=== PATIENT | female | born 1970 | race Caucasian/White ===

== ENCOUNTER 2023-05-23 15:08 | Outpatient (AMB) | payer OTHER, SELFPAY ==
--- NOTE | 2023-05-23 15:24 | A.OFFPC_ITS ---
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 Intake Note: Pt is here today as a New Patient to est care/ Never had a colonoscopy, mammogram and its been years for her papsmear Allergies No Known Allergies Allergy (Verified 05/23/23 15:36) Medication List - Last Reconciled 05/23/23 by FIFI Sher No Known Home Meds Tobacco use date assessed: 05/23/23 Dental Screening Dental Screen Date: 05/23/23 Did you have a dental visit in the last 12 months?: Yes Did you have a dental problem in the last 6 months where you did not have access to dental care?: Yes Was dental information given to patient?: Patient has dentist HPI HPI Comments History of Present Illness Details Patient is a 52-year-old female in today to establish care. She has a past medical history significant for hiatal hernia and bilateral foot discomfort. She is due for Pap smear, colonoscopy, mammogram, will refer. She declines immunizations at this time. Patient states that she had a CT scan at her previous place of residence in [place] and was told that she had a hernia,she does not remember what kind, just that it involves the diaphragm. She states this was prior to [facility], and sh e never heard from the office and nothing was ever done about the problem. She states that she lost weight as an intervention to the discomfort, but that the discomfort is interfering with her daily life. With some movement she feels a sharp pain that radiates through her back, other times she has a dull ache. This pain is reproducible, and is positional. She utilizes Tylenol and Salonpas with some effect. She also states that she has bilateral foot discomfort. Denies any trauma to the area, denies any tingling, numbness, change in foot color, or edema. 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 She does not use Motrin often due to past overuse. [facility] Medical History Esophageal stricture Family History Mother Hypertension Father Skin cancer Social History (Updated 05/23/23 @ 15:42 by FIFI Sher) Housing: House Alcohol intake: current Comment: soc situations Patient Tobacco Use Status: Former Tobacco user Tobacco use type: Cigar e-Cigarette/Vaping Use: Never Used service: No Current occupational status: employed Cognitive needs: No Hearing needs: No Vision needs: Yes Questionnaire PHQ-9 Over the last 2 weeks, how often have you been bothered by any of the following problems? 1. Little interest or pleasure in doing things: not at all 2. Feeling down, depressed, or hopeless: not at all 3. Trouble falling or staying asleep, or sleeping too much: not at all 4. Feeling tired or having little energy: not at all 5. Poor appetite or overeating: not at all 6. Feeling bad about yourself - or that you are a failure or have let yourself or your family down: not at all 7. Trouble concentrating on things, such as reading the newspaper or watching television: not at all 8. Moving or speaking so slowly that other people could have noticed. Or the opposite - being so fidgety or restless that you have been moving around a lot more than usual: not at all 9. Thoughts that you would be better off or of hurting yourself in some way: not at all Total score: 0 Depression Screening Interpretation: Negative Depression Screening Done: Yes 14208 - PHQ-9 Billing: Yes Source: Developed by Drs. Caden Russell, Bhargavi Fisher, Reji Starks and colleagues, with an educational ga from [employer]. Thrive Questionnaire Date Thrive assessed: 05/23/23 I am a: Patient What is your living situation today?: I have a steady place to live Within the past 12 months, did the food you bought not last and you didn't have the money to get more?: Never true Within the past 12 months, did you worry whether your food would run out before you got money to buy more?: Never true Do you have trouble paying for medicines?: No Do you have trouble getting transportation to medical appointments?: No Do you have trouble paying your heating and electricity bill?: No Do you have trouble taking care of your child, family member or friend?: No Do you have trouble with day-to-day activities such as bathing, preparing meals, shopping, managing finances, etc.?: No Are you currently unemployed and looking for a job?: No Are you interested in more education?: No THRIVE Score: 0 AUDIT C Alcohol Use Questionnaire (AUDIT-C) 1. How often do you have a drink containing alcohol?: Monthly or less 2. How many drinks containing alcohol do you have on a typical day when you are drinking?: 1 or 2 3. How often do you have six or more drinks on one occasion?: Never Total Score: 1 TRAVIS-7 AMB Questionnaire TRAVIS-7 Date TRAVIS - 7 assessed: 05/23/23 Feeling nervous, anxious, or on edge: 0 = Not at all Not being able to stop or control worryin = Not at all Worrying too much about different things: 0 = Not at all Trouble relaxin = Not at all Being so restless that it is hard to sit still: 0 = Not at all Becoming easily annoyed or irritable: 0 = Not at all Feeling afraid as if something awful might happen: 0 = Not at all Total TRAVIS-7 score (0-4 normal; 5-9 mild; 10-14 moderate; 15-21 severe): 0 Source: Developed by Drs. Caden Russell, Bhargavi Fisher, Reji Starks and colleagues, with an educational ga from [employer]. TRAVIS-7 Assessment Billing TRAVIS-7 Assessment Tool: TRAVIS-7 Assessment 96327 Review of Systems Const Details: Constitutional : No Weight loss, No Fever, No Chills, No Fatigue, No Malaise Cardiovascular : No Chest Pain, No SOB, No Dyspnea on Exertion, No Orthopnea, No Edema, No Palpitations Respiratory : No Cough, No Sputum, No Wheezing Gastrointestinal : No Nausea, No Vomiting, No Diarrhea, No Constipation, No abdominal Pain, No Hematochezia, No Melena Genitourinary : No Dysuria, No Urinary Frequency, No Hematuria, Musculoskeletal : Admits some back discomfort. Admits bilateral foot discomfort. Skin : No Skin Lesions, No rash Neuro : No Weakness, No Numbness, No Dizziness, No Headache Psych : No Anxiety/Panic, No Depression Heme/Lymph: No Bruising, No Bleeding,No Lymphadenopathy Endocrine : No Polyuria, No Polydipsia All other systems reviewed and are negative Physical exam (Primary Care) Vital Signs: Last Vital Signs Pulse 89 05/23/23 15:25 BP 122/80 05/23/23 15:25 Pulse Ox 99 05/23/23 15:25 Oxygen Delivery Method Room Air 05/23/23 15:25 Care Plan Goal for BP management: Patient's vital signs are stable. BMI result Body Mass Index 30.0 Tobacco/Smoking Status: Tobacco use Status Tobacco use date assessed 05/23/23 05/23/23 15:30 Patient Tobacco Use Status Former Tobacco user 05/23/23 15:42 Tobacco use type Cigar 05/23/23 15:42 e-Cigarette/Vaping Use Never Used 05/23/23 15:42 PHQ-9: PHQ-9 Score PHQ-9: Total score 0 05/23/23 16:19 Depression Screening Interpretation: Negative Thrive Assessment: Date of Thrive Assessment Date Thrive assessed 05/23/23 05/23/23 15:30 Const Other: Appearance: Alert.? Oriented X3.? No acute distress.? Neck: Normal inspection.? Neck supple.?No lymphadenopathy. CVS: Normal heart rate and rhythm.? Pulses normal.? Respiratory: No respiratory distress.? Breath sounds normal.? Abdomen: Soft and nontender.? Skin: Skin warm and dry.? Normal skin color.? Normal skin turgor.? Extremities: No lower extremity edema.? No calf ttp. 5/5 strength to bilateral upper and lower extremities Back: No midline tenderness, no C-spine tenderness, full range of motion, no CVA tenderness bilaterally. Pain with rotation and extension on upper part of back. Not spinal. Neuro: Oriented X 3.? No motor deficit.? No sensory deficit. CN 2-12 intact Assessment and Plan Assessment & Plan (1) Chronic pain of both feet: Comment: Patient states she has chronic pain of bilateral feet due to standing on her feet at her job over the past 30 years. She denied x-ray specifically asked for referral to Podiatry. Code(s): M79.671 - Pain in right foot; M79.672 - Pain in left foot; G89.29 - Other chronic pain (2) Hernia: Comment: Patient states she had CT scan of her abdomen 5-6 years ago which demonstrated a hernia involving her diaphragm. She has not intervened on the issue since. Will order CT scan and referred to GI or General surgery. Patient is agreeable to the plan. Code(s): K46.9 - Unspecified abdominal hernia without obstruction or gangrene Plan: Patient has been educated on signs of worsening symptoms and when to report back to the office or when to report to the emergency room. Plan Take your medications as prescribed. If you were prescribed antibiotics today, it is important that you take your medication to their entirety, do not skip any doses, do not finish them early. Follow-up with your primary care provider this week. Return to the emergency department with new or worsening symptoms. Such as fevers, chills, chest pain, shortness of breath, nausea, vomiting, dizziness, headache, vision changes, lethargy In case of emergency call 911 Orders: Orders Complete Blood Count Auto Diff 05/23/23 Z13.0 - Encounter for screening for diseases of the blood and blood-forming organs and certain disorders involving the immune mechanism UA CC w/rflx Micro + Cult 05/23/23 E86.0 - Dehydration Vitamin D 25-OH (D2 and D3) 05/23/23 Z13.21 - Encounter for screening for nutritional disorder Vitamin B6 05/23/23 Z13.21 - Encounter for screening for nutritional disorder Vitamin B12 05/23/23 Z13.21 - Encounter for screening for nutritional disorder TSH reflex Free T4 05/23/23 Z13.29 - Encounter for screening for other suspected endocrine disorder MM tomosynthesis screening BI 05/23/23 Z12.31 - Encounter for screening mammogram for malignant neoplasm of breast CT abdomen wo IV con 05/23/23 K46.9 - Unspecified abdominal hernia without obstruction or gangrene Comprehensive Met. Panel 05/23/23 Z91.89 - Other specified personal risk factors, not elsewhere classified Lipid Panel 05/23/23 Z13.220 - Encounter for screening for lipoid disorders Referrals Podiatry Referral G89.29 - Other chronic pain, M79.671 - Pain in right foot, M79.672 - Pain in left foot SPRING SETTER Referral Z12.4 - Encounter for screening for malignant neoplasm of cervix Gastroenterology Referral K46.9 - Unspecified abdominal hernia without obstruction or gangrene, Z12.11 - Encounter for screening for malignant neoplasm of colon Review Flu Vaccine not done: patient reason Coding Level of Care Code New Pt Level 4 (24745) Diagnoses Chronic pain of both feet M79.671; M79.672; G89.29 Hernia K46.9 Additional Codes TRAVIS-7 Assessment Billing - TRAVIS-7 Assessment Tool: TRAVIS-7 Assessment 04335 ([id number]) Time Spent (min) 50
[2023-05-23 15:25] VITALS: BP 122/80; PULSE 89; O2SAT 99
== END 2023-05-23 16:56 | disposition home or self-care (01) ==
PROVIDERS: PCP Nurse Practitioner Primary Care; Visit Provider Nurse Practitioner Primary Care
DX: M79.671 Pain in right foot (principal); M79.672 Pain in left foot; G89.29 Other chronic pain; K46.9 Unspecified abdominal hernia without obstruction or gangrene
CPT/HCPCS: 99204

== ENCOUNTER 2023-06-29 09:46 | Outpatient (REF) | payer OTHER, SELFPAY ==
--- NOTE | ~2023-06-29 | MM_ITS ---
EXAMINATION: MM SCREENING DIGITAL BREAST TOMOSYNTHESIS, BILATERAL CLINICAL INFORMATION: Screening. Asymptomatic. COMPARISON: Mammography: This study is a new baseline examination. The patient reports her last mammogram was over 10 years ago. TECHNIQUE: Digital breast tomosynthesis is performed in both the craniocaudal and mediolateral oblique views along with computer-aided detection (CAD). Synthesized 2D images are generated from the tomosynthesis. FINDINGS: There are scattered areas of fibroglandular density (ACR BI-RADS breast composition Category b). There are no significant masses, abnormal calcifications, or other abnormalities. MM/MM tomosynthesis screening BI IMPRESSION: No mammographic evidence of malignancy. ASSESSMENT: BI-RADS BI-RADS 1 - Negative RECOMMENDATION: Routine annual mammography screening. 1 year F/U This examination should not preclude the clinical evaluation of a suspicious palpable abnormality. This patient's information was entered into a reminder system with a target due date for their next mammogram.
== END 2023-06-29 09:47 | disposition home or self-care (01) ==
LOC: HO.MAMMO 09:46
PROVIDERS: PCP Nurse Practitioner Primary Care; Visit Provider Nurse Practitioner Primary Care
DX: Z12.31 Encounter for screening mammogram for malignant neoplasm of breast (principal)
CPT/HCPCS: 77063; 77067

== ENCOUNTER → 2023-06-29 10:30 | Outpatient (BNV) | payer OTHER, SELFPAY | PROVIDERS: PCP Nurse Practitioner Primary Care; Visit Provider Radiology Diagnostic Radiology | DX: Z12.31 Encounter for screening mammogram for malignant neoplasm of breast (principal) | CPT/HCPCS: 77063; 77067 ==

== ENCOUNTER 2023-07-05 12:13 | Outpatient (REF) | payer OTHER, SELFPAY ==
--- NOTE | ~2023-07-05 | CT_ITS ---
EXAMINATION: CT ABDOMEN WITHOUT CONTRAST CLINICAL INFORMATION: Unspecified abdominal hernia without obstruction or gangrene. COMPARISON: None available. TECHNIQUE: Contiguous axial thin section helical images of the abdomen were performed without contrast. The data set was reformatted in the coronal and sagittal planes and reviewed on an independent workstation. This CT examination was performed using dose optimization techniques as appropriate, variously including the following: *Automated exposure control *Adjustment of mA and/or kV according to patient size (this includes techniques or standardized protocols for targeted exams where dose is matched to indication/reason for exam; i.e. extremities or head) *Use of iterative reconstruction technique DLP: 345 mGy-cm FINDINGS: LUNG BASES: The visualized lung bases are unremarkable aside from the presence of a 2 mm subpleural right lower lobe nodule (4:27). LIVER, GALLBLADDER, AND BILIARY TREE: The liver is normal in size, shape, and attenuation. No focal hepatic lesion or biliary ductal dilatation is present. The gallbladder is unremarkable with no evidence of radiopaque gallstones, gallbladder wall thickening, or obvious pericholecystic inflammatory changes. PANCREAS: Unremarkable. SPLEEN: Unremarkable. ADRENAL GLANDS: Unremarkable. KIDNEYS AND URETERS: The kidneys are normal in size, shape, and attenuation. No hydronephrosis, hydroureter, or calculi seen. No perinephric stranding. GASTROINTESTINAL TRACT: The visualized bowel including the appendix is unremarkable. ABDOMINAL WALL: There is a tiny periumbilical hernia seen containing only fat with defect measuring 0.8 x 0.7 cm. There is mild diastasis of the rectus muscles in the epigastrium with no evidence of forward bulging. LYMPH NODES: No retroperitoneal lymphadenopathy seen. VASCULAR: Unremarkable. OSSEOUS STRUCTURES: Mild degenerative changes seen with minimal narrowing at L4-L5. There is a hemangioma present in the L5 vertebral body. There is minimal grade 1 anterolisthesis of L4 upon L5. No bony destructive lesions to suggest malignancy. CT/CT abdomen wo IV con IMPRESSION: 1. Tiny periumbilical hernia containing only fat. 2. Incidental note made of a 2 mm right lower lobe lung nodule (no followup indicated), mild degenerative changes in the spine and a hemangioma in the L5 vertebral body. According to the UPDATED 2017 Fleischner Society recommendations, the advised follow-up imaging for solid nodules <6 mm in the middle/lower lobes is no routine followup.
[2023-07-05] MEDS: Barium Sulfate Oral (Vanilla) 450 ML ORAL.SUSP PO (14:06)
== END 2023-07-05 12:14 | disposition home or self-care (01) ==
LOC: HO.CT 12:13
PROVIDERS: PCP Nurse Practitioner Primary Care; Visit Provider Nurse Practitioner Primary Care
DX: K46.9 Unspecified abdominal hernia without obstruction or gangrene (principal)
CPT/HCPCS: 74150

== ENCOUNTER 2023-07-23 13:11 | Outpatient (AMB) | payer OTHER, SELFPAY ==
--- NOTE | 2023-07-23 13:15 | MHC.OFFVIS ---
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 She has had a lot of stress in her life in the last few years. She has not had any major issues with menopause the hot flashes are there but no big deal. She does have a problem with swallowing and can not eat larger amounts and can not tolerate eat protein like meat either even though she loves meat She is in the midst of a workup and has some different test on that body part and system next week she had a mammogram recently. She has varicose veins that she is going to be seeing 2. She is delivered 2 children vaginally 1 of whom was 11 lb. She has no particular sap basis architect concerns she says in the past she always has abnormal Pap smears but when they repeat them they are fine. 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 She has had a lot of stress in the last few years with loss of her parents and moving. [facility] Medical History Esophageal stricture Family History (Updated 07/23/23 @ 13:25 by JIM Shine) Mother Hypertension Father Skin cancer Colon cancer Social History Housing: House Alcohol intake: current Comment: soc situations Patient Tobacco Use Status: Former Tobacco user Tobacco use type: Cigar e-Cigarette/Vaping Use: Never Used Patient : No service: No Current occupational status: employed Cognitive needs: No Hearing needs: No Vision needs: Yes Female Reproductive History Menstrual Age of Menarche: 11 control method: none Total pregnancies: 3 Full term: 2 Number of Living Children: 2 Ab spontaneous: 1 Date of last pap smear: 04/25/17 (negative) History of abnormal pap smear: Yes Date of Mammogram: 06/29/23 Physical Exam Vital Signs: Last Vital Signs BP 122/76 07/23/23 13:18 BMI result Body Mass Index 29.8 Const General: healthy appearing, comfortable, no acute distress, well developed and alert Nutritional Appearance: average body habitus Orientation/consciousness: patient oriented x3 Limitations: no limitations HEENT Head: Yes normocephalic Neck Neck: Yes normal visual inspection Chest Chest palpation & inspection: normal inspection of the chest Breast/axilla inspection: normal inspection of the breasts and normal inspection of the axillae Breast/axilla palpation: normal palpation of the breasts and normal palpation of the axillae Resp Effort & Inspection: normal respiratory effort GI Inspection: Yes normal to inspection, No Abdominal wall edema and No distended Palpation (GI): Soft to palpation and nontender Other: External exam within normal limits vagina pink and moist cervix multiparous pink smooth closed mobile nontender uterus small anteverted mobile nontender adnexa nontender very good muscle tone. General: Yes bladder normal to palpation External Female Exam: normal external appearance and normal appearance of the urethra Speculum Exam - Vagina: normal appearance of the vagina, normal palpation and normal vaginal discharge Speculum Exam - Cervix: normal appearance of the cervix, normal palpation and nontender Bimanual exam- vagina & uterus: normal bimanual exam, normal palpation, uterine size normal, bladder normal to palpation, consistency normal, normal palpation, uterine mobility normal, uterine shape normal, No Cervical tenderness present, non-tender and no cervical motion tenderness Bimanual Exam- Adnexa, other: normal adnexae, no masses, normal and No adnexal tenderness Neuro General: patient oriented x3 Assessment & Plan Assessment & Plan (1) Well woman exam with routine gynecological exam: Code(s): Z01.419 - Encounter for gynecological examination (general) (routine) without abnormal findings (2) Cervical cancer screening: Code(s): Z12.4 - Encounter for screening for malignant neoplasm of cervix (3) Perimenopause: Code(s): N95.1 - Menopausal and female climacteric states Plan -----Discussed in this visit the following: healthy balanced diet, regular and consistent exercise, getting recommended health screens, doing the best she can for her particular health concerns, kegel exercises, pap smear screening and followup recommendations, mammography screening and SBE, normal changes in cycles in her life stage--- . Discussed her her history menopausal symptoms that she is dealing with okay. And she is back on track trying to explore other health concerns such as a diaphragmatic hernia issue that is affecting what she is able to eat and varicose veins and back issues she is slowly dealing with each body part as it comes up. She had her mammogram done last week and she met her primary care provider who is helping her with all these referrals. She does have a history of abnormal Paps but says they always turning lathe tender to be okay and no procedure was ever needed to be done. We will see her in 1 year she declined any other testing had no need of STI testing. Orders: Orders Pap Smear Today Z12.4 - Encounter for screening for malignant neoplasm of cervix Coding Level of Care Code New Pt Prev Care 40-64y(87645) Diagnoses Well woman exam with routine gynecological exam Z01.419 Cervical cancer screening Z12.4 Perimenopause N95.1
[2023-07-23 13:18] VITALS: BP 122/76; BMI 29.8
== END 2023-07-23 14:06 | disposition home or self-care (01) ==
PROVIDERS: PCP Nurse Practitioner Primary Care; Visit Provider Advanced Practice Midwife
DX: Z01.419 Encounter for gynecological examination (general) (routine) without abnormal findings (principal); Z12.4 Encounter for screening for malignant neoplasm of cervix; N95.1 Menopausal and female climacteric states
CPT/HCPCS: 99386

== ENCOUNTER 2023-07-23 13:11 | Outpatient (REF) | payer OTHER, SELFPAY ==
[2023-07-31 03:29] LABS: HPV mRNA E6/E7 rflx Not Detected (Not Detected)
== END 2023-07-23 13:12 | disposition home or self-care (01) ==
LOC: HO.LNP 13:11
PROVIDERS: PCP Nurse Practitioner Primary Care; Visit Provider Advanced Practice Midwife
DX: Z01.419 Encounter for gynecological examination (general) (routine) without abnormal findings (principal); Z11.51 Encounter for screening for human papillomavirus (HPV); N95.1 Menopausal and female climacteric states
CPT/HCPCS: 87624; 88142

== ENCOUNTER 2023-07-26 10:30 | Outpatient (AMB) | payer OTHER, SELFPAY ==
--- NOTE | 2023-07-26 10:39 | A.SPINEOV_ITS ---
Intake Intake Visit Reasons: low back pain Intake Note: Ms. 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 She is a very nice 53-year-old female who has had on and off low back pain going on over the last 2-3 years. Is been getting steadily worse. There is no pain radiating down the legs. It is centered about her mid lumbar region. When she stands up and walks she will almost immediately noticed the pain. The amount of time before she gets the intense and severe pain varies. Sometimes it can be within a few minutes and other times it can be as long as in our more. Getting out of the bed in morning is difficult. The doing certain activities daily living is also difficult. If she sits down or lays down she feels like she can realign her spine and get the pain to go away. She comes in today for evaluation with a lumbar CT showing an L5 hemangioma and some mild disc degeneration. She will take Advil if needed, she uses Salonpas patches as well. No physical therapy, cortisone injections, acupuncture chiropractic treatment yet. PMH: She is otherwise healthy, she does have history of hiatal hernia. Social hx: She is not smoke, drink use any recreational drugs Medications: Advil Allergies: None Physical exam: Normal exam with diminished reflexes at the patella Imaging review: Lumbar CT shows a well-formed hemangioma in the L5 vertebral body. There is no misalignment or collapse of the bone related to this. There is some mild disc degeneration at L4-5 and L5-S1. Impression: 53-year-old female chronic low back pain which standing and walking, getting steadily worse over the last 2-3 years. She has tried some gentle conservative treatment in the form of tincture of time, pain medications as outlined above. She has no radicular features. She does have CT scan showing some mild disc degeneration and L5 hemangioma. None of these things look concerning. The hemangioma is an incidental finding. In order to have a better evaluation of this patient I would like standing flexion-extension x-rays as well as a lumbar MRI. Once these things are completed, I will see her back in the office. Thank you for allowing us to care for your patient. The total time spent with this visit with this patient was 45 minutes reviewing history, physical exam, lumbar CT imaging review, and implementation of treatment plan or further diagnostic testing Vidal Arenas MD,PhD [facility] Orders: Orders MR lumbar spine wo con Today M54.9 - Dorsalgia, unspecified XR lumbar spine 4V min Today M54.9 - Dorsalgia, unspecified Coding Level of Care Code New Pt Level 4 (54452) Diagnoses Back pain M54.9
== END 2023-07-26 13:02 | disposition home or self-care (01) ==
PROVIDERS: PCP Nurse Practitioner Primary Care; Referring Provider Nurse Practitioner Primary Care; Visit Provider Physician Assistant
DX: M54.9 Dorsalgia, unspecified (principal)
CPT/HCPCS: 99204

== ENCOUNTER 2023-07-26 10:30 | Outpatient (REF) | payer OTHER, SELFPAY | END 2023-07-26 10:31 | disposition home or self-care (01) | LOC: HO.HOSX 10:30 | PROVIDERS: PCP Nurse Practitioner Primary Care; Visit Provider Physician Assistant | DX: Z13.89 Encounter for screening for other disorder (principal) ==

== ENCOUNTER 2023-07-30 10:25 | Outpatient (AMB) | payer OTHER, SELFPAY ==
--- NOTE | 2023-07-30 10:27 | MHC.OFFVIS ---
Intake Vital Signs 07/30/23 10:30 Height 5 ft 9 in Weight 200 lb 9.93 oz BMI 29.6 BP 147/60 H Blood Pressure Location Lt brachial Position Sitting Pulse 83 Intake Visit Reasons: Colonoscopy screening / abdominal hernia Intake Note: Leslie presents in the office as a new patient. CC: Family hx of colon cancer and here today because of ongoing issues with her abdomen. Ended p in ED in [place]. She was spitting up saliva and was given nitroglycerin and it calmed down her esophagus. Allergies No Known Allergies Allergy (Verified 07/30/23 10:30) HPI Colonoscopy screening / abdominal hernia HPI Details 53 year old? female is here today for pre colonoscopy screening.? Patient was sent to us by her PCP.? This is his/her first colonoscopy screening.? Patient reports difficulty of swallowing. Patient reports that sometimes when she eats certain food she feels like the food gets stuck in the lower part of her esophagus. Patient reports that when this happens she feels like she can bring the food up it feels like it gets stuck in the lower esophagus and saliva is the only thing that comes up. Patient was told that she has a hernia back in 2019. Abdominal CT scan showed tiny umbilical fat containing hernia and diastasis recti in epigastric area. Patient used to live in [facility] and has moved here couple years ago area. Patient just recently established care here at [facility]. Denies any personal or family history of gastrointestinal disease, colon polyps, or cancer.? Denies history of difficulty with sedation or anesthesia in the past.? Negative for history of sleep apnea.? Denies any history of cardiac, renal, pulmonary, or hepatic disease.?? No history of infectious? diseases like hepatitis A, B, C, HIV or tuberculosis.? Patient is not on any anticoagulation therapy. [facility] Medical History Esophageal stricture Family History Mother Hypertension Father Skin cancer Colon cancer Social History Housing: House Alcohol intake: current Comment: soc situations Patient Tobacco Use Status: Former Tobacco user Tobacco use type: Cigar e-Cigarette/Vaping Use: Never Used service: No Current occupational status: employed Cognitive needs: No Hearing needs: No Vision needs: Yes Female Reproductive History Menstrual Age of Menarche: 11 Review of Systems Const Denies weight gain and Denies weight loss ENT Reports no additional complaints, Reports dysphagia and Denies odynophagia Card Reports no additional complaints Resp Reports no additional complaints GI Denies abdominal pain, Denies belching, Denies melena, Denies bloating, Denies change in bowel habits, Reports dysphagia, Denies excessive flatus, Denies dyspepsia, Denies heartburn, Denies diarrhea, Denies loose stools, Denies nausea, Denies odynophagia and Denies vomiting Musc Reports no additional complaints Neuro Reports no additional complaints Psych Reports no additional complaints Endo Reports no additional complaints Physical Exam Vital Signs: Last Vital Signs Pulse 83 07/30/23 10:30 BP 147/60 H 07/30/23 10:30 BMI result Body Mass Index 29.6 Const General: healthy appearing, no acute distress and well developed Nutritional Appearance: well nourished Orientation/consciousness: patient oriented x3 Resp Effort & Inspection: normal respiratory effort, able to speak in complete sentences, no tracheal deviation and symmetric chest movement Auscultation: clear to auscultation bilaterally Cardio Rate: regular rate GI Inspection: Yes normal to inspection and No distended Palpation (GI): Soft to palpation, not firm, nontender and No hepatosplenomegaly present Auscultation: normal bowel sounds General: Yes no CVA tenderness Back/Spine/Pelvis Back: no CVA tenderness Skin General skin exam: elasticity normal, turgor normal and dry skin Neuro General: patient oriented x3 Psych Appearance: grossly normal Mental Status: mental status grossly normal Assessment & Plan Assessment & Plan (1) Dysphagia: Code(s): R13.10 - Dysphagia, unspecified Qualifiers: Dysphagia type: esophageal phase Qualified Code(s): R13.19 - Other dysphagia (2) Screen for colon cancer: Code(s): Z12.11 - Encounter for screening for malignant neoplasm of colon Plan Patient denies any cardiac or respiratory symptoms. Patient reports dysphagia with almost any food that she eats. Patient does not feel like she has a acid reflux. Will send her for upper GI with barium swallow if reflux seen she will be placed on PPI. Patient also will be sent for upper endoscopy to rule out achalasia, esophageal stricture, Quintana, Schatzki ring. Patient denies any issues with anesthesia in the past.? Denies any history of sleep apnea.? No history infectious diseases in the past or present.? Not on any anticoagulation therapy.? No family or personal history of colon cancer or polyps.? Patient denies melena, hematochezia, unintentional weight loss or ribbon like stools.? Discussed at length the pre-procedure,? prep, diet & medications as well as what to expect prior, during and after the procedure.?? Stressed the importance of good bowel prep. ?Recommended the use of Vaseline or Calmoseptine OTC & baby wipes with bowel movements to promote comfort.? ?Patient verbalizes understanding and agrees to plan of care.? She was given the opportunity to ask questions and all questions answered.? We will see her after the procedure.? Orders: Orders FL upper GI w Ba Swallow Today R13.10 - Dysphagia, unspecified Medications: New bisacodyl (Dulcolax (bisacodyl)) take 4 tabs at noon the day before your colonoscopy 20 mg (4 x 5 mg) PO ONCE 1 day 4 tabs 0RF Z12.11 - Encounter for screening for malignant neoplasm of colon polyethylene glycol 3350 (Miralax) As directed by gastroenterology department at [facility] 238 grams PO ONCE 238 grams 0RF Z12.11 - Encounter for screening for malignant neoplasm of colon Coding Level of Care Code New Pt Level 4 (87703) Diagnoses Esophageal dysphagia R13.19 Dysphagia type: esophageal phase Screen for colon cancer Z12.11 Time Spent (min) 45 Comment 30 minutes spent with patient and additional 15 minutes spent reviewing her records
[2023-07-30 10:30] VITALS: BP 147/60; PULSE 83; BMI 29.6
== END 2023-07-30 12:21 | disposition home or self-care (01) ==
PROVIDERS: PCP Nurse Practitioner Primary Care; Referring Provider Nurse Practitioner Primary Care; Visit Provider Nurse Practitioner Family
DX: R13.19 Other dysphagia (principal); Z12.11 Encounter for screening for malignant neoplasm of colon
CPT/HCPCS: 99204

== ENCOUNTER → 2023-07-30 10:25 | Outpatient (BNVA) | payer OTHER, SELFPAY | PROVIDERS: PCP Nurse Practitioner Primary Care; Visit Provider Nurse Practitioner Family ==

== ENCOUNTER 2023-08-19 10:07 | Outpatient (AMB) | payer OTHER, SELFPAY ==
[2023-08-19 10:18] VITALS: BP 120/72; PULSE 100; O2SAT 98; BMI 29.4
--- NOTE | 2023-08-19 10:18 | MHC.PC.OV ---
Vital Signs 08/19/23 10:18 Height 5 ft 9 in Weight 199 lb 2 oz BMI 29.4 BP 120/72 Blood Pressure Location Rt brachial Position Sitting Pulse 100 Pulse Source Pulse Oximeter Pulse Oximetry (%) 98 Oxygen Delivery Method Room Air Intake Visit Reasons: 3 month follow up Intake Note: Pt is here today for 3 month follow up. Allergies No Known Allergies Allergy (Verified 08/19/23 10:31) Medication List - Last Reconciled 08/19/23 by FIFI Sher bisacodyl (Dulcolax (bisacodyl)) 20 mg (4 x 5 mg) PO ONCE 1 day polyethylene glycol 3350 (Miralax) 238 grams PO ONCE Tobacco use date assessed: 08/19/23 Dental Screening Dental Screen Date: 08/19/23 Did you have a dental visit in the last 12 months?: Yes Did you have a dental problem in the last 6 months where you did not have access to dental care?: No Was dental information given to patient?: Patient has dentist HPI HPI Comments History of Present Illness Details Patient is a 53-year-old female in today for follow-up. Patient patient due for labs. She has a past medical history significant for tiny periumbilical hernia containing only fat, dysphagia, disc degeneration at L4/L5 and L5/L S1. Patient is up-to-date with Pap smear completed 2 months of prior with negative finding. Patient is up-to-date with mammogram last performed 07/20. Patient has colonoscopy scheduled for November. Lower back pain-patient currently being [facility]. Patient has MRI and four view x-ray ordered. Patient will need to schedule follow-up when imaging completed. Dysphagia-patient has upcoming appointment for upper GI with barium swallow. Bilateral foot pain-patient has referral to Podiatry. Patient educated to wear inserts and shoes. Patient given meloxicam. Patient has a chief complaint of bilateral leg heaviness and twitching, as well as varicose veins. She states she has worked several jobs over the years where she is standing on her feet. Denies numbness or tingling. [facility] Medical History (Updated 08/19/23 @ 10:59 by FIFI Sher) Esophageal stricture Family History Mother Hypertension Father Skin cancer Colon cancer Social History Housing: House Alcohol intake: current Comment: soc situations Patient Tobacco Use Status: Former Tobacco user Tobacco use type: Cigar e-Cigarette/Vaping Use: Never Used service: No Current occupational status: employed Cognitive needs: No Hearing needs: No Vision needs: Yes Female Reproductive History Menstrual Age of Menarche: 11 Questionnaire Thrive Questionnaire Date Thrive assessed: 05/23/23 AUDIT C Alcohol Use Questionnaire (AUDIT-C) 1. How often do you have a drink containing alcohol?: Monthly or less 2. How many drinks containing alcohol do you have on a typical day when you are drinking?: 1 or 2 3. How often do you have six or more drinks on one occasion?: Never Total Score: 1 Score Reviewed/Action Taken: Yes TRAVIS-7 AMB Questionnaire TRAVIS-7 Date TRAVIS - 7 assessed: 05/23/23 Source: Developed by Drs. Caden Russell, Bhargavi Fisher, Reji Starks and colleagues, with an educational ga from [employer]. Review of Systems Const All systems reviewed & are unremarkable except as noted in HPI and below Card Denies chest pain, Denies dyspnea and Reports other (Occasional palpitations) Resp Denies cough and Denies dyspnea Musc Reports arthralgias (Of bilateral feet.) and Denies tingling Neuro Denies tingling and Denies paresthesias Physical exam (Primary Care) Care Plan Goal for BP management: Patient's vital stable. Tobacco/Smoking Status: Tobacco use Status Tobacco use date assessed 05/23/23 07/23/23 14:05 Patient Tobacco Use Status Former Tobacco user 07/23/23 14:05 Tobacco use type Cigar 07/23/23 14:05 e-Cigarette/Vaping Use Never Used 07/23/23 14:05 Thrive Assessment: Date of Thrive Assessment Date Thrive assessed 05/23/23 07/23/23 14:05 Const Other: Appearance: Alert.? Oriented X3.? No acute distress.? Head: Normocephalic, atraumatic, no step-offs or deformities Neck: Normal inspection.? Neck supple.? CVS: Normal heart rate and rhythm.? Pulses normal.?S1 and S2. No Rubs/gallops/murmurs. Respiratory: No respiratory distress.? Breath sounds normal.? Skin: Skin warm and dry.? Normal skin color.? Normal skin turgor.? Extremities: No lower extremity edema.? Vascular: +varicose veins bilateral lower extremities. Neuro: Oriented X 3.? No motor deficit.? No sensory deficit. CN 2-12 intact Office Procedures EKG [id number], Complete Assessment and Plan Assessment & Plan (1) Chronic pain of both feet: Comment: Patient given referral to Podiatry. Patient does not want x-rays at this time. Patient instructed to wear proper footwear including inserts. Patient given prescription of meloxicam. Code(s): M79.671 - Pain in right foot; M79.672 - Pain in left foot; G89.29 - Other chronic pain (2) Varicose veins of bilateral lower extremities with other complications: Comment: Patient has varicose veins of bilateral lower extremities. Patient reports some heaviness and twitching. Patient has been instructed she can utilize compression socks. Patient referred to vascular surgery. Code(s): I83.893 - Varicose veins of bilateral lower extremities with other complications (3) Palpitation: Comment: Patient reports occasional palpitation she thinks related to stress. In office EKG performed. Normal sinus rhythm Code(s): R00.2 - Palpitations Plan: Take your medications as prescribed. If you were prescribed antibiotics today, it is important that you take your medication to their entirety, do not skip any doses, do not finish them early. Follow-up with your primary care provider this week. Return to the emergency department with new or worsening symptoms. Such as fevers, chills, chest pain, shortness of breath, nausea, vomiting, dizziness, headache, vision changes, lethargy In case of emergency call 911 Plan Follow-up for physical exam in 2-3 months Orders: Orders AMB EKG-In Office Today Z13.6 - Encounter for screening for cardiovascular disorders Referrals Podiatry Referral G89.29 - Other chronic pain, M79.671 - Pain in right foot, M79.672 - Pain in left foot Medications: New meloxicam Do not combine with other NSAIDS 15 mg PO DAILY 14 tabs 0RF Coding Level of Care Code Est Pt Level 4 (50750) Diagnoses Chronic pain of both feet M79.671; M79.672; G89.29 Varicose veins of bilateral lower extremities with other complications I83.893 Palpitation R00.2 CPT Codes EKG - CPT: 48276-[id number], Complete ([id number]) Time Spent (min) 31
== END 2023-08-19 11:24 | disposition home or self-care (01) ==
LOC: HO.HMGC 10:07
PROVIDERS: PCP Nurse Practitioner Primary Care; Visit Provider Nurse Practitioner Primary Care
DX: M79.671 Pain in right foot (principal); M79.672 Pain in left foot; G89.29 Other chronic pain; I83.893 Varicose veins of bilateral lower extremities with other complications; R00.2 Palpitations
CPT/HCPCS: 93000; 99214

== ENCOUNTER 2023-09-09 18:42 | Outpatient (REF) | payer OTHER, SELFPAY | END 2023-09-09 18:43 | disposition home or self-care (01) | LOC: HO.MRI 18:42 | PROVIDERS: PCP Nurse Practitioner Primary Care; Visit Provider Physician Assistant | DX: Z13.89 Encounter for screening for other disorder (principal) ==

== ENCOUNTER 2023-09-12 09:41 | Outpatient (REF) | payer OTHER, SELFPAY ==
--- NOTE | ~2023-09-12 | MR_ITS ---
EXAMINATION: MR LUMBAR SPINE WITHOUT CONTRAST CLINICAL INFORMATION: Low back pain COMPARISON: Lumbar spine x-ray on 09/12/2023 TECHNIQUE: MRI of the lumbar spine was obtained using routine sequences without contrast. FINDINGS: The visualized lumbar vertebrae are intact with normal alignment. Evaluation of the intervertebral discs show: T12/L1: Intervertebral disc height is normal, with normal T2 signal. No focal disc herniation is seen. Bilateral T12/L1 neuroforamina are patent. Bilateral apophyseal joints are intact with normal alignment. L-1/L-2: Intervertebral disc height is normal, with normal T2 signal. No focal disc herniation is seen. Bilateral L1-L2 neuroforamina are patent. Bilateral apophyseal joints are intact with normal alignment. L2/L3: Intervertebral disc height is normal, with normal T2 signal. No focal disc herniation is seen. Bilateral L2-L3 neuroforamina are patent. Bilateral apophyseal joints are intact with normal alignment. L3/L4: Intervertebral disc height is normal, with normal T2 signal. Mild posterior disc protrusion is seen. Bilateral L3-L4 neuroforamina are patent. Bilateral apophyseal joints are intact with normal alignment. L4/L5: Intervertebral disc height is mildly decreased, with mild loss of T2 signal. No focal disc herniation is seen. Bilateral L4-L5 neuroforamina are patent. Bilateral apophyseal joints are intact with normal alignment. L5 midline and left vertebral body T2 hyperintense lesion with multiple signal voids is seen, consistent with cavernous hemangioma L5/S1: Intervertebral disc height is mildly decreased, with normal T2 signal. No focal disc herniation is seen. Bilateral L5-S1 neuroforamina are patent. Bilateral apophyseal joints are intact with normal alignment. Conus medullaris is seen normally at L1 level. S2 level sacral canal Tarlov cyst is seen measuring 0.5 cm in AP diameter, 1.3 cm in vertical height, impinging the sacral nerve roots. MR/MR lumbar spine wo con IMPRESSION: 1. Mild degenerative disc disease at L4-L5 and L5-S1. 2. Mild posterior disc protrusion at L3-L4. 3. No significant spinal canal or neural foraminal stenosis. 4. L5 vertebral body cavernous hemangioma. 5. S2 level Tarlov cyst is seen impinging the sacral nerve roots.
--- NOTE | ~2023-09-12 | XR_ITS ---
EXAMINATION: XR LUMBOSACRAL SPINE CLINICAL INFORMATION: Comment dorsalgia unspecified COMPARISON: None available. TECHNIQUE: 4 standing views of the lumbar spine, inclusive of flexion and extension views, were obtained. FINDINGS: There 5 nonrib-bearing lumbar-type vertebral bodies. The height of vertebral bodies is well-maintained. There is mild disc space narrowing at L4-L5 with grade 1 anterolisthesis of L4 with respect to L5 which increases with flexion and decreases with extension. There is multilevel degenerative facet joint disease, most marked at L4-L5 and L5-S1. The sacroiliac joints are symmetric. XR/XR lumbar spine 4V min IMPRESSION: 1. Degenerative disc disease at L4-L5 with grade 1 anterolisthesis of L4 with respect to L5, as discussed above. 2. Multilevel degenerative facet joint disease, most marked at L4-L5 and L5-S1.
== END 2023-09-12 09:42 | disposition home or self-care (01) ==
LOC: HO.MRI 09:41
PROVIDERS: PCP Nurse Practitioner Primary Care; Visit Provider Physician Assistant
DX: M54.9 Dorsalgia, unspecified (principal)
CPT/HCPCS: 72110; 72148

== ENCOUNTER 2023-09-26 09:43 | Outpatient (REF) | payer OTHER, SELFPAY ==
--- NOTE | ~2023-09-26 | FL_ITS ---
EXAMINATION: XR FLUOROSCOPY UPPER GI WITH AIR CLINICAL INFORMATION: Dysphagia COMPARISON: None TECHNIQUE: Fluoroscopic air contrast upper GI examination was performed utilizing standard techniques with thin and thick barium and effervescent granules. Numerous spot images were obtained. FINDINGS: Lateral cine images of the oropharynx and hypopharynx demonstrate normal swallow mechanism with normal epiglottic inversion and soft palate elevation. No tracheal penetration, glottic or subglottic aspiration identified. No nasopharyngeal reflux present. There is ballooning of the hypopharynx with associated mild cricopharyngeal achalasia present. Hypopharyngeal structures appear normal without evidence of mass or diverticulum. Dual and single contrast images of the esophagus demonstrate normal caliber, contour, and mucosal pattern. No evidence of mass, or ulcerations identified. There is moderate narrowing of the GE junction. The patient swallowed the barium tablet without any difficulty. There was prolonged stasis of the barium tablets just above the GE junction that eventually passed into the stomach. This appeared secondary to a mildly eccentric Schatzki ring, which is much more prominent centrally and dorsally. (RF 1-8, image 9 of 11). Esophageal peristalsis was mildly disordered. A small type I hiatal hernia is present below the Schatzki ring. No significant gastroesophageal reflux was seen during the course of the examination and on reflux views. Dual contrast and single contrast images of the stomach demonstrated a normal contour. The gastric rugal folds have a mildly thickened appearance. There are multiple well-circumscribed filling defects in the body of the stomach that likely represents hyperplastic polyps. No masses or ulcerations are seen. Contrast freely passed into the gastric antrum and duodenal bulb without delay. Single and air-contrast images of the duodenal bulb demonstrate no abnormality. The duodenal sweep has a normal appearance, course, and mucosal fold appearance. The imaged proximal jejunum has a normal fold pattern and caliber. FLUOROSCOPY TIME: 4 minutes 49 seconds Number of Spot Images: 11 Number of Cine: 17 DOSE AREA PRODUCT: 3213 uGy-m2 (microgray-meter squared) FL/FL upper GI w Ba Swallow IMPRESSION: 1. 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 Moderate narrowing of the GE junction that likely represents a moderately narrowing eccentric Schatzki's ring. This resulted in prolonged stasis of the barium tablets above the LES that eventually passed into the stomach 3. Small type I hiatal hernia. There is a small outpouching/diverticulum of the hiatal hernia just below the GE junction. 4. Mildly thickened gastric rugal folds that likely represents mild gastritis. 5. Multiple well-circumscribed filling defects in the body the stomach that likely represent hyperplastic polyps. Recommend correlation with EGD. This procedure was performed by Julio Don PA-C, and supervised by Dr. Peralta
== END 2023-09-26 09:44 | disposition home or self-care (01) ==
LOC: HO.XRAY 09:43
PROVIDERS: PCP Nurse Practitioner Primary Care; Visit Provider Nurse Practitioner Family
DX: R13.10 Dysphagia, unspecified (principal)
CPT/HCPCS: 74240

== ENCOUNTER → 2023-09-26 09:44 | Outpatient (BNV) | payer OTHER, SELFPAY | PROVIDERS: PCP Nurse Practitioner Primary Care; Visit Provider Physician Assistant Surgical | DX: R13.10 Dysphagia, unspecified (principal) | CPT/HCPCS: 74246 ==

== ENCOUNTER 2023-10-28 09:07 | Outpatient (AMB) | payer OTHER, SELFPAY ==
--- NOTE | 2023-10-28 09:07 | A.OFFPC_ITS ---
Vital Signs 10/28/23 09:10 Height 5 ft 9 in Weight 204 lb BMI 30.1 BP 122/78 Blood Pressure Location Lt brachial Position Sitting Pulse 85 Pulse Source Pulse Oximeter Pulse Oximetry (%) 98 Oxygen Delivery Method Room Air Intake Visit Reasons: 3M F/U Intake Note: pt is here for 3 mo f/u. Allergies No Known Allergies Allergy (Verified 10/28/23 09:28) Medication List - Last Reconciled 10/28/23 by FIFI Sher bisacodyl (Dulcolax (bisacodyl)) 20 mg (4 x 5 mg) PO ONCE 1 day famotidine 40 mg PO BEDTIME meloxicam 15 mg PO DAILY omeprazole 20 mg PO DAILY polyethylene glycol 3350 (Miralax) 238 grams PO ONCE Tobacco use date assessed: 10/28/23 Dental Screening Dental Screen Date: 08/19/23 HPI HPI Comments History of Present Illness Details Patient is a 53-year-old female in today for a 3 month follow-up with chronic foot pain. Patient was given referral to Podiatry but has been unable to make an appointment. States that she has been unable to reach them to make an appointment. Will change referral to [facility]. Patient has also being given Education on proper footwear, proper stretching and exercises she can do to help with the discomfort and pain. Patient denies trauma to the area, denies tingling or numbness. Patient also got labs drawn in [place] at [facility]. Will obtain records. [facility] Medical History (Updated 10/28/23 @ 10:09 by FIFI Sher) Esophageal stricture Surgical History No pertinent past surgical history Family History Mother Hypertension Father Skin cancer Colon cancer Social History Housing: House Alcohol intake: current Comment: soc situations Patient Tobacco Use Status: Former Tobacco user Tobacco use type: Cigar e-Cigarette/Vaping Use: Never Used service: No Current occupational status: employed Cognitive needs: No Hearing needs: No Vision needs: Yes Female Reproductive History Menstrual Age of Menarche: 11 Questionnaire Thrive Questionnaire Date Thrive assessed: 05/23/23 AUDIT C Alcohol Use Questionnaire (AUDIT-C) 1. How often do you have a drink containing alcohol?: Monthly or less 2. How many drinks containing alcohol do you have on a typical day when you are drinking?: 1 or 2 3. How often do you have six or more drinks on one occasion?: Never Total Score: 1 TRAVIS-7 AMB Questionnaire TRAVIS-7 Date TRAVIS - 7 assessed: 05/23/23 Source: Developed by Drs. Caden Russell, Bhargavi Fisher, Reji Starks and colleagues, with an educational ga from [employer]. Review of Systems Const All systems reviewed & are unremarkable except as noted in HPI and below Physical exam (Primary Care) Vital Signs: Last Vital Signs Pulse 85 10/28/23 09:10 BP 122/78 10/28/23 09:10 Pulse Ox 98 10/28/23 09:10 Oxygen Delivery Method Room Air 10/28/23 09:10 Care Plan Goal for BP management: Blood pressure is controlled BMI result Body Mass Index 30.1 Tobacco/Smoking Status: Tobacco use Status Tobacco use date assessed 10/28/23 10/28/23 09:14 Patient Tobacco Use Status Former Tobacco user 10/28/23 09:08 Tobacco use type Cigar 10/28/23 09:08 e-Cigarette/Vaping Use Never Used 10/28/23 09:08 Thrive Assessment: Date of Thrive Assessment Date Thrive assessed 05/23/23 10/28/23 09:08 Const Other: Appearance: Alert.? Oriented X3.? No acute distress.? Head: Normocephalic. CVS: Normal heart rate and rhythm.? Pulses normal.? Respiratory: No respiratory distress.? Breath sounds normal.? Skin: Skin warm and dry.? Normal skin color.? Normal skin turgor.? Extremities: No lower extremity edema.?+Vericose veins bilateral thighs. Neuro: Oriented X 3.? No motor deficit.? No sensory deficit. CN 2-12 intact Assessment and Plan Assessment & Plan (1) Chronic pain of both feet: Comment: Patient given referral to Podiatry. Patient does not want x-rays at this time. Patient instructed to wear proper footwear including inserts. Patient given prescription of meloxicam. Code(s): M79.671 - Pain in right foot; M79.672 - Pain in left foot; G89.29 - Other chronic pain (2) Varicose veins of bilateral lower extremities with other complications: Comment: Patient has varicose veins of bilateral lower extremities. Patient reports some heaviness and twitching. Patient has been instructed she can utilize compression socks. Patient referred to vascular surgery. Code(s): I83.893 - Varicose veins of bilateral lower extremities with other complications (3) Chest tightness: Comment: Patient has history of intermittent chest tightness. Has distant PFT workup with previous provider several years ago but cannot remember the results. Has trialed albuterol inhaler in the past with little effect. Will refer to Pulmonary for consult Code(s): R07.89 - Other chest pain Plan Obtain labs Orders: Referrals Pulmonology Referral R07.89 - Other chest pain Podiatry Referral G89.29 - Other chronic pain, M79.671 - Pain in right foot, M79.672 - Pain in left foot Vascular Surgery Referral I83.893 - Varicose veins of bilateral lower extremities with other complications Coding Level of Care Code Est Pt Level 3 (22010) Diagnoses Chronic pain of both feet M79.671; M79.672; G89.29 Varicose veins of bilateral lower extremities with other complications I83.893 Chest tightness R07.89 Time Spent (min) 26
[2023-10-28 09:10] VITALS: BP 122/78; PULSE 85; O2SAT 98; BMI 30.1
== END 2023-10-28 09:40 | disposition home or self-care (01) ==
PROVIDERS: PCP Nurse Practitioner Primary Care; Visit Provider Nurse Practitioner Primary Care
DX: M79.671 Pain in right foot (principal); M79.672 Pain in left foot; G89.29 Other chronic pain; I83.893 Varicose veins of bilateral lower extremities with other complications; R07.89 Other chest pain
CPT/HCPCS: 99213

== ENCOUNTER 2023-12-03 10:09 | Day surgery (SDC) | payer OTHER, SELFPAY ==
[2023-12-03 06:22] VITALS: BMI 30.3
[2023-12-03 10:11] VITALS: BP 153/70; PULSE 89; RESP 19; TEMP 36.4; O2SAT 98
--- NOTE | 2023-12-03 10:24 | P.HPSUR_ITS ---
Pre-Procedural Eval Section A - 24 Hr Update-Section A only Date of Service: 12/03/23 Section B - Complete if H&P > 30 days Chief Complaint: Encounter for screening for malignant neoplasm of Relevant Family History (Specify if Yes): No Relevant Social History: None Present Medications: see Short Stay Collaborative assessment Medical History: Significant History (dysphagia) History of Previous Operations: No relevant previous surgery Allergies: Allergies Allergy/AdvReac Type Severity Reaction Status Date / Time No Known Allergies Allergy Verified 10/28/23 09:28 Review of Systems Sugical H&P ROS: Negative: Constitution, Cardiovascular, Respiratory, Neur ological, Psychiatric, Hem-Onc, Allergic/Immunologic, Gastrointestinal, Genitourinary, Musculoskeletal, Integumentary, Endocrine and Eyes/Ears/Nose/Throat Exam Surgical H&P Exam: Normal: HEENT, Normal: Heart, Normal: Lungs, Normal: Extremities, Normal: Abdomen, Normal: Skin and Normal: Neurological Plan Diagnosis/Plan: Unchanged I have reviewed the history and physical and performed a pertinent physical examination on my patient. No changes have occurred unless specified. EGD for dysphagia also Time Spent With Patient Time: Total time managing care of this patient today ____ minutes.
[2023-12-03] MEDS: Lactated Ringers 1,000 ML 100 ML IVCONT (10:38)
--- NOTE | 2023-12-03 11:41 | HO.OPN-COLON ---
Colonoscopy Operative Note Operative Note Date of Service: 12/03/23 Narrative: Operative Information Procedure Description: EGD, Colonoscopy Indication: dysphagia, screening colo Anesthesia: MAC FLEXIBLE TRANSORAL UPPER GASTROINTESTINAL ENDOSCOPY AND COLONOSCOPY PROCEDURE NOTE UPPER ENDOSCOPY Consent: Indications for the procedure and potential complications of bleeding, perforation, reaction to medications and missed diagnosis were discussed with the patient and informed consent was obtained. Instrument: Olympus GIF H 190 J mid size upper endoscope Monitoring: Vital signs and clinical assessment, continuous EKG monitoring, Pulse oximetry, Carbon Dioxide monitoring and blood pressure monitoring were done throughout the procedure. Procedure: The patient was placed in the left lateral decubitis position and pre-procedure medications were administered and a bite block was placed. The endoscope was inserted into the mouth and advanced under direct vision to the third part of duodenum. A careful inspection was made as the upper endoscope was withdrawn including a retroflexed examination of the proximal stomach; Findings and interventions are described below. Findings: Larynx:normal Esophagus: GE junction at 40 cm, diaphragm hiatus at 42 cm, consistent with 2 cm sliding hiatal hernia, Schatzki ring noted, dilated with 20 mm balloon and small tear noted-UEs also dilated -no tears, bx taken from GEJ, distal and proximal esophagus Stomach: Patchy erythema Biopsies were obtained. Grade 2 flap valve on retroflexed examination of the cardia. x 3 small gastric polyps 3-4 mm removed with cold forceps Duodenum: bulbar duodenitis, bx taken Intervention: Biopsies as noted above, balloon dilation COLONOSCOPY Instrument: Olympus variable stiffness pediatric scope 190L Colonoscopy Monitoring: Vital signs and clinical assessment, continuous EKG monitoring, Pulse oximetry, Carbon Dioxide monitoring and blood pressure monitoring were done throughout the procedure. Colon withdrawal time was 6 minutes. Procedure: The patient was placed in the left lateral decubitis position and pre-procedure medications were administered. After a digital rectal examination of the ano-rectum, the video colonoscope was inserted into the rectum and advanced through the colon to the cecum/TI. The colonoscope was slowly withdrawn in a retrograde panoramic fashion and the colon mucosa was carefully examined including a retroflexed view of the rectum. Findings and interventions are described below. Procedure Difficulty:moderate Findings: tortuous colon Terminal Ileum-normal Cecum:normal Ascending Colon: normal Transverse Colon -normal Descending Colon:normal Sigmoid Colon: severe diverticulosis Rectum: Retroflexion with small internal hemorrhoids, grade I Anorectum - normal Colon preparation: [place] Bowel Preparation Scale Right colon; 2 Transverse colon: 2 Left colon; 2 (0 = Unprepared colon segment with mucosa not seen due to solid stool that cannot be cleared. 1 = Portion of mucosa of the colon segment seen, but other areas of the colon segment not well seen due to staining, residual stool and/or opaque liquid. 2 = Minor amount of residual staining, small fragments of stool and/or opaque liquid, but mucosa of colon segment seen well. 3 = Entire mucosa of colon segment seen well with no residual staining, small fragments of stool or opaque liquid) Impression and Post Procedure Diagnosis: Endoscopy Findings: duodenitis, gastritis schatzki ring gastric polyps hiatal hernia Colonoscopy Findings: diverticulosis internal hemorrhoids Plan: Await Pathology results Repeat Colonoscopy in 10 years or earlier if clinically indicated High fiber diet leaflet avoid straining at stool, epsom salts and sitz bath, anusol supps or cream GERd precautions, cont with PPI as is helping Above findings were reviewed with the patient and relevant handouts were provided if indicated.
--- NOTE | 2023-12-03 11:45 | HO.ANESPROP2 ---
Documented by User: Heather Nicolas NP 12/02/23 08:29 HPI - Anesthesia Eval Consult details Narrative: 53yo F for Upper Endoscopy and Colonoscopy [facility] Active Problems Active Problems: All Active Problems Chest tightness (Acute) Palpitation (Acute) Varicose veins of bilateral lower extremities with other complications (Acute) Back pain (Acute) Perimenopause (Acute) Cervical cancer screening (Acute) Well woman exam with routine gynecological exam (Acute) Hernia (Acute) Chronic pain of both feet (Acute) Past Medical History Medical History (Updated 10/28/23 @ 10:09 by FIFI Sher) Esophageal stricture Family History Family History Mother Hypertension Father Skin cancer Colon cancer Surgical History Surgical History (Updated 12/03/23 @ 10:34 by Carolin Perez RN) Hx of endoscopy Hx of colonoscopy No pertinent past surgical history Social History Social History Housing: House Alcohol intake: current Alcohol intake frequency: does not drink Comment: soc situations Patient Tobacco Use Status: Former Tobacco user Tobacco use type: Cigar e-Cigarette/Vaping Use: Never Used Are you DNR?: No Advance Directives: No Advance Directives Information Provided: Yes service: No Current occupational status: employed Cognitive needs: No Hearing needs: No Vision needs: Yes Meds Allergies Allergy/AdvReac Type Severity Reaction Status Date / Time No Known Allergies Allergy Verified 10/28/23 09:28 Exam Narrative Narrative: EKG 07/2023 NSR @ 78 Assessment and Plan Assessment Anesthesia Assessment: Chart Reviewed Documented by User: Celena Palmer DO 12/03/23 11:47 PMFSH Past Medical History Medical History (Updated 10/28/23 @ 10:09 by FIFI Sher) Esophageal stricture Family History Family History Mother Hypertension Father Skin cancer Colon cancer Family history of problems with anesthesia: No Surgical History Surgical History (Updated 12/03/23 @ 10:34 by Carolin Perez RN) Hx of endoscopy Hx of colonoscopy No pertinent past surgical history History of Problems with Anesthesia: No Social History Social History Housing: House Alcohol intake: current Alcohol intake frequency: does not drink Comment: soc situations Patient Tobacco Use Status: Former Tobacco user Tobacco use type: Cigar e-Cigarette/Vaping Use: Never Used Are you DNR?: No Advance Directives: No Advance Directives Information Provided: Yes service: No Current occupational status: employed Cognitive needs: No Hearing needs: No Vision needs: Yes Meds Allergies Allergy/AdvReac Type Severity Reaction Status Date / Time No Known Allergies Allergy Verified 10/28/23 09:28 Exam Exam Date and Time: December 03, 2023 1120 Height,Weight and Vital Signs: Height 5 ft 9 in Weight 93.123 kg Vital Signs Temperature 97.5 F 12/03/23 10:11 Pulse Rate 89 12/03/23 10:11 Respiratory Rate 19 12/03/23 10:11 Blood Pressure 153/70 H 12/03/23 10:11 Pulse Oximetry 98 12/03/23 10:11 Oxygen Delivery Method Room Air 12/03/23 10:11 Temperature 97.5 F 12/03/23 10:11 Pulse Rate 89 12/03/23 10:11 Respiratory Rate 19 12/03/23 10:11 Blood Pressure 153/70 H 12/03/23 10:11 Pulse Oximetry 98 12/03/23 10:11 Oxygen Delivery Method Room Air 12/03/23 10:11 Airway Mallampati Class: II TM Dist: <=3cm Neck ROM: Full Loose/Missing/Broken Teeth: Yes (multiple broken teeth) Heart: S1S2 Lungs: CTAB Assessment and Plan Assessment Anesthesia Assessment: Anesthesia Plan Discussed and Chart Reviewed Final Anesthetic Review Family History of Problems with Anesthesia: No History of Problems with Anesthesia: No NPO: Yes ASA Class: II Final Preanesthetic Review: No Changes in Pt Med Stat, Meds/Allgs Chart Reviewed, Consent Obtained/Reviewed and Anes Risks/Benef Reviewed Patient Risk: Low Procedure Risk: Low Anesthetic Plan Anesthetic Plan: MAC: and Agree w/ Assess. and Plan Disposition: Standard PACU
[2023-12-03 12:05] VITALS: BP 118/75; PULSE 87; RESP 18; TEMP 36.1; O2SAT 97
[2023-12-03 12:10] VITALS: BP 117/79; PULSE 81; RESP 16; O2SAT 98
[2023-12-03 12:15] VITALS: BP 121/76; PULSE 79; RESP 14; O2SAT 97
[2023-12-03 12:20] VITALS: BP 139/84; PULSE 84; RESP 16; O2SAT 98
[2023-12-03 12:35] VITALS: BP 143/81; PULSE 79; RESP 15; TEMP 36.1; O2SAT 99
== END 2023-12-03 12:55 | disposition home or self-care (01) ==
PROVIDERS: PCP Nurse Practitioner Primary Care; Visit Provider Internal Medicine Gastroenterology
PROC: (CPT 45378; principal; 2023-12-03 12:20)
DX: Z12.11 Encounter for screening for malignant neoplasm of colon (principal); K57.30 Diverticulosis of large intestine without perforation or abscess without bleeding; K64.0 First degree hemorrhoids; R13.19 Other dysphagia; K29.50 Unspecified chronic gastritis without bleeding; K29.80 Duodenitis without bleeding; K31.7 Polyp of stomach and duodenum; K44.9 Diaphragmatic hernia without obstruction or gangrene; K22.2 Esophageal obstruction; Z87.891 Personal history of nicotine dependence
CPT/HCPCS: 45378; 43249; 43239; 88305; 88307; 88313; 88342; C1726; J2704

== ENCOUNTER → 2023-12-03 10:09 | Outpatient (BNV) | payer OTHER, SELFPAY | PROVIDERS: PCP Nurse Practitioner Primary Care; Visit Provider Internal Medicine Gastroenterology | DX: Z12.11 Encounter for screening for malignant neoplasm of colon (principal); K57.30 Diverticulosis of large intestine without perforation or abscess without bleeding; K64.0 First degree hemorrhoids; R13.10 Dysphagia, unspecified; K22.2 Esophageal obstruction; K31.7 Polyp of stomach and duodenum; K29.80 Duodenitis without bleeding | CPT/HCPCS: 43239; 43249; 45378 ==

== ENCOUNTER 2023-12-17 11:14 | Outpatient (AMB) | payer OTHER, SELFPAY ==
--- NOTE | 2023-12-17 11:28 | A.OFFVIS_ITS ---
Vital Signs 12/17/23 11:29 Height 5 ft 9 in Weight 202 lb 13.204 oz BMI 29.9 BP 140/65 H Blood Pressure Location Lt brachial Position Sitting Pulse 84 Intake Visit Reasons: S/P Double; Dr. Levy Intake Note: Leslie presents in the office as a follow up EGD and COLO. CC: Just here for the results - no concerns! Security Researcher Required: No Allergies No Known Allergies Allergy (Verified 12/17/23 11:28) HPI HPI S/P Double; Dr. Levy: Details: LAST VISIT: Dysphagia Screen for colon cancer Plan Patient denies any cardiac or respiratory symptoms. Patient reports dysphagia with almost any food that she eats. Patient does not feel like she has a acid reflux. Will send her for upper GI with barium swallow if reflux seen she will be placed on PPI. Patient also will be sent for upper endoscopy to rule out achalasia, esophageal stricture, Quintana, Schatzki ring. Patient denies any issues with anesthesia in the past.? Denies any history of sleep apnea.? No history infectious diseases in the past or present.? Not on any anticoagulation therapy.? No family or personal history of colon cancer or polyps.? Patient denies melena, hematochezia, unintentional weight loss or ribbon like stools.? Discussed at length the pre-procedure,? prep, diet & medications as well as what to expect prior, during and after the procedure.?? Stressed the importance of good bowel prep. ?Recommended the use of Vaseline or Calmoseptine OTC & baby wipes with bowel movements to promote comfort.? ?Patient verbalizes understanding and agrees to plan of care.? She was given the opportunity to ask questions and all questions answered.? We will see her after the procedure.? Orders Orders [place] upper GI w Ba Swallow Today R13.10 Medications New bisacodyl (Dulcolax (bisacodyl)) take 4 tabs at noon the day before your colonoscopy 20 mg (4 x 5 mg) PO ONCE 1 day 4 tabs 0RF Z12.11 polyethylene glycol 3350 (Miralax) As directed by gastroenterology department at [facility] 238 grams PO ONCE 238 grams 0RF Z12.11 UPPER ENDOSCOPY AND COLONOSCOPY Upper endoscopy Findings: Larynx:normal Esophagus: GE junction at 40 cm, diaphragm hiatus at 42 cm, consistent with 2 cm sliding hiatal hernia, Schatzki ring noted, dilated with 20 mm balloon and small tear noted-UEs also dilated -no tears, bx taken from GEJ, distal and proximal esophagus Stomach: Patchy erythema Biopsies were obtained. Grade 2 flap valve on retroflexed examination of the cardia. x 3 small gastric polyps 3-4 mm removed with cold forceps Duodenum: bulbar duodenitis, bx taken Intervention: Biopsies as noted above, balloon dilation Colonoscopy Findings: tortuous colon Terminal Ileum-normal Cecum:normal Ascending Colon: normal Transverse Colon -normal Descending Colon:normal Sigmoid Colon: severe diverticulosis Rectum: Retroflexion with small internal hemorrhoids, grade I Anorectum - normal Colon preparation: Metz Bowel Preparation Scale Right colon; 2 Transverse colon: 2 Left colon; 2 (0 = Unprepared colon segment with mucosa not seen due to solid stool that cannot be cleared. 1 = Portion of mucosa of the colon segment seen, but other areas of the colon segment not well seen due to staining, residual stool and/or opaque liquid. 2 = Minor amount of residual staining, small fragments of stool and/or opaque liquid, but mucosa of colon segment seen well. 3 = Entire mucosa of colon segment seen well with no residual staining, small fragments of stool or opaque liquid) Impression and Post Procedure Diagnosis: Endoscopy Findings: duodenitis, gastritis schatzki ring gastric polyps hiatal hernia Colonoscopy Findings: diverticulosis internal hemorrhoids Plan: Await Pathology results Repeat Colonoscopy in 10 years or earlier if clinically indicated High fiber diet leaflet avoid straining at stool, epsom salts and sitz bath, anusol supps or cream GERd precautions, cont with PPI as is helping PATHOLOGY RESULTS Diagnosis A. Duodenum, biopsy: Chronic active/non-specific duodenitis with blunted villi; negative for dysplasia. B. Stomach, biopsy: Gastric body mucosa with mild reactive changes and minimal chronic inactive gastritis; negative for H pylori, intestinal metaplasia and dysplasia. C. Gastric polyps: Fundic gland polyps with minimal to mild chronic active inflammation; negative for H pylori, intestinal metaplasia and dysplasia. D. Gastroesophageal junction, biopsy: Squamous mucosa with hyperplasia, rare intraepithelial neutrophils and few intraepithelial eosinophils (up to 2 per high-power field) and columnar mucosa with mild chronic inflammation, consistent with esophagitis; negative for intestinal metaplasia and dysplasia. E. Esophagus, distal, biopsy: Squamous mucosa with no specific change; no columnar mucosa present. F. Esophagus, proximal, biopsy: Squamous mucosa with no specific change; no columnar mucosa present. TODAY'S VISIT Patient is here today for follow-up and to discuss colonoscopy and upper endoscopy results. Gastric polyp found, mild active inflammation without intestinal metaplasia or dysplasia seen in her stomach. No H pylori found. Mild duodenitis found. Schatzki ring, ballooning. Patient reports to be feeling better. Taking omeprazole 20 mg and her symptoms of dysphagia improved. Patient does admit to have occasional postnasal drip and sinus pressure. Denies any nausea or vomiting. Denies any dyspepsia. Colonoscopy normal with no polyps. Patient had diverticulosis throughout the whole colon. Colonoscopy was recommended in 10 years. [facility]LY [facility], [facility] Medical History (Updated 12/17/23 @ 12:08 by Fabiola Goins [facility]) GERD (gastroesophageal reflux disease) Sliding hiatal hernia Schatzki's ring Diverticulosis Esophageal stricture Surgical History Hx of endoscopy Hx of colonoscopy No pertinent past surgical history Family History Mother Hypertension Father Skin cancer Colon cancer Social History Housing: House Alcohol intake: current Alcohol intake frequency: does not drink Comment: soc situations Patient Tobacco Use Status: Former Tobacco user Tobacco use type: Cigar e-Cigarette/Vaping Use: Never Used service: No Current occupational status: employed Cognitive needs: No Hearing needs: No Vision needs: Yes Female Reproductive History Menstrual Age of Menarche: 11 Review of Systems Const Denies weight gain and Denies weight loss ENT Reports no additional complaints, Denies dysphagia and Denies odynophagia Card Reports no additional complaints Resp Reports no additional complaints GI Denies abdominal pain, Denies belching, Denies melena, Denies bloating, Denies change in bowel habits, Denies dysphagia, Denies excessive flatus, Denies dyspepsia, Denies heartburn, Denies diarrhea, Denies loose stools, Denies nausea, Denies odynophagia and Denies vomiting Reports no additional complaints Musc Reports no additional complaints Neuro Reports no additional complaints Psych Reports no additional complaints Endo Reports no additional complaints Physical Exam Vital Signs: Last Vital Signs Pulse 84 12/17/23 11:29 BP 140/65 H 12/17/23 11:29 BMI result Body Mass Index 29.9 Const General: healthy appearing and no acute distress Nutritional Appearance: obese Orientation/consciousness: patient oriented x3 Resp Effort & Inspection: normal respiratory effort, able to speak in complete sentences, no tracheal deviation and symmetric chest movement Auscultation: clear to auscultation bilaterally Cardio Rate: regular rate GI Inspection: Yes normal to inspection, No distended and Yes obesity Palpation (GI): Soft to palpation, not firm, nontender and No hepatosplenomegaly present Auscultation: normal bowel sounds General: Yes no CVA tenderness Back/Spine/Pelvis Back: no CVA tenderness Skin General skin exam: elasticity normal, turgor normal and dry skin Neuro General: patient oriented x3 Psych Appearance: grossly normal Mental Status: mental status grossly normal Results Reviewed Results Reviewed: UPPER GI SERIES IMPRESSION: 1. 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 Moderate narrowing of the GE junction that likely represents a moderately narrowing eccentric Schatzki's ring. This resulted in prolonged stasis of the barium tablets above the LES that eventually passed into the stomach 3. Small type I hiatal hernia. There is a small outpouching/diverticulum of the hiatal hernia just below the GE junction. 4. Mildly thickened gastric rugal folds that likely represents mild gastritis. 5. Multiple well-circumscribed filling defects in the body the stomach that likely represent hyperplastic polyps. Recommend correlation with EGD. Assessment & Plan Assessment & Plan (1) Diverticulosis: Code(s): K57.90 - Diverticulosis of intestine, part unspecified, without perforation or abscess without bleeding Category: Medical (2) Schatzki's ring: Code(s): K22.2 - Esophageal obstruction Category: Medical (3) Sliding hiatal hernia: Code(s): K44.9 - Diaphragmatic hernia without obstruction or gangrene Category: Medical (4) GERD (gastroesophageal reflux disease): Code(s): K21.9 - Gastro-esophageal reflux disease without esophagitis Category: Medical Qualifiers: Esophagitis presence: without esophagitis Qualified Code(s): K21.9 - Gastro-esophageal reflux disease without esophagitis (5) Status post colonoscopy: Code(s): Z98.890 - Other specified postprocedural states (6) Dysphagia: Code(s): R13.10 - Dysphagia, unspecified Qualifiers: Dysphagia type: esophageal phase Qualified Code(s): R13.19 - Other dysphagia Plan Patient will continue taking omeprazole daily. Avoid dietary triggers and late night snacking. May take famotidine at bedtime. Staying upright for minimum 3 hours after meals discussed with patient. Schatzki ring with balloon. Patient is not experiencing dysphagia anymore. Reports are severe reflux under control. Recommendation made for patient to increase fiber intake. May take probiotics. Patient reports postnasal drip, frequent sinus pressure. Will send patient for allergen testing. Patient will follow-up with us on as-needed basis. May continue current PPI and H2 chela regimen. Colonoscopy in 10 years, sooner on as needed basis. Patient is agreeable to current plan of care and verbalizes understanding of instructions. She was given the opportunity to ask questions and all questions answered. Thank you for allowing me to participate in her care Orders: Orders Rast Allergen Today K21.9 - Gastro-esophageal reflux disease without esophagitis Medications: New omeprazole 40 mg PO DAILY 90 caps 3RF K21.9 - Gastro-esophageal reflux disease without esophagitis Discontinued omeprazole Discontinued Reason: Doctor's Order 20 mg PO DAILY 30 caps 3RF K21.9 - Gastro-esophageal reflux disease without esophagitis Coding Level of Care Code Est Pt Level 4 (89817) Diagnoses Diverticulosis K57.90 Schatzki's ring K22.2 Sliding hiatal hernia K44.9 Gastroesophageal reflux disease without esophagitis K21.9 Esophagitis presence: without esophagitis Status post colonoscopy Z98.890 Esophageal dysphagia R13.19 Dysphagia type: esophageal phase Time Spent (min) 35 Comment 20 minutes spent with patient and additional 15 minutes spent reviewing her records
[2023-12-17 11:29] VITALS: BP 140/65; PULSE 84; BMI 29.9
== END 2023-12-17 11:55 | disposition home or self-care (01) ==
PROVIDERS: PCP Nurse Practitioner Primary Care; Referring Provider Nurse Practitioner Primary Care; Visit Provider Nurse Practitioner Family
DX: K57.90 Diverticulosis of intestine, part unspecified, without perforation or abscess without bleeding (principal); K22.2 Esophageal obstruction; K44.9 Diaphragmatic hernia without obstruction or gangrene; K21.9 Gastro-esophageal reflux disease without esophagitis; Z98.890 Other specified postprocedural states; R13.19 Other dysphagia
CPT/HCPCS: 99214

== ENCOUNTER → 2023-12-17 11:14 | Outpatient (BNVA) | payer OTHER, SELFPAY | PROVIDERS: PCP Nurse Practitioner Primary Care; Visit Provider Nurse Practitioner Family ==

== ENCOUNTER 2024-05-07 11:27 | Outpatient (AMB) | payer OTHER, SELFPAY ==
--- NOTE | 2024-05-07 11:29 | MHC.OFFVIS ---
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 States she has numerous family members w/ VV. Pt states they are bulging, heavy and painful. 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 Complaints include swelling of lower extremities, cramping, fatigue, and heaviness of the lower extremities. It has been affecting their daily activities including walking, standing, and physical activity. It is noted more so in right leg. She is not a smoker and not a diabetic. There is a family history of varicose veins but no history of any blood clots or blood clotting disorders. Patient denies any previous venous surgery or injections. Patient denies any history of DVT/ PE. Patient denies any history of phlebitis. Trial of compression includes - elevation nightly and compression stockings over the last couple of weeks They now present for vascular evaluation regarding their varicose veins. [facility] Medical History GERD (gastroesophageal reflux disease) Sliding hiatal hernia Schatzki's ring Diverticulosis Esophageal stricture Surgical History Hx of endoscopy Hx of colonoscopy No pertinent past surgical history Family History Mother Hypertension Father Skin cancer Colon cancer Social History Housing: House Alcohol intake: current Alcohol intake frequency: does not drink Comment: soc situations Patient Tobacco Use Status: Former Tobacco user Tobacco use type: Cigar e-Cigarette/Vaping Use: Never Used service: No Current occupational status: employed Cognitive needs: No Hearing needs: No Vision needs: Yes Female Reproductive History Menstrual Age of Menarche: 11 Review of Systems Const Reports as per HPI and Denies weakness ENT Reports Normal hearing present and Denies dizziness Card Reports as per HPI, Denies chest pain, Denies chest pain at rest, Denies chest pain with activity, Denies dyspnea and Denies dyspnea on exertion Resp Reports as per HPI, Denies cough, Denies dyspnea and Denies dyspnea on exertion GI Reports as per HPI, Denies abdominal pain, Denies nausea and Denies vomiting Musc Denies numbness Skin/Breast Reports as per HPI, Denies erythema and Denies wounds Neuro Reports Normal hearing present, Denies dizziness, Denies numbness, Denies Sensory deficit (Neuro) and Denies weakness Psych Reports no additional complaints Endo Reports no additional complaints Physical Exam Const General: healthy appearing and no acute distress Orientation/consciousness: patient oriented x3 HEENT Head: Yes normal to inspection Ears: hearing grossly normal bilaterally Mouth: Normal oral and palatal mucosa present Resp Effort & Inspection: normal respiratory effort and able to speak in complete sentences Auscultation: clear to auscultation bilaterally Cardio Jugular venous distension: no JVD Rate: regular rate Rhythm: regular rhythm Heart sounds: S1 normal heart sound present and S2 normal heart sound present Bruits: no abdominal aortic bruits, no carotid bruits, no femoral bruits and no renal bruits Peripheral pulses: Peripheral pulses 2+ throughout GI Inspection: Yes normal to inspection Palpation (GI): No Abdominal aortic bruit present Skin General skin exam: no rashes or lesions noted Wounds: no wounds Hair: normal Neuro General: patient oriented x3 Cranial nerves: Yes Normal hearing present Cognition (Neuro): normal cognition Gait exam (Neuro): Normal gait present Motor exam (neuro): 5/5 motor strength present throughout Sensory Exam: No Sensory deficit (Neuro) Extrem Other: Right lower extremity: several tortuosities noted on the medial aspect around [id number]. Spider veins noted on the upper lateral thigh. Left lower extremity: Spider veins noted multiple locations throughout the lower extremity. Bilateral lower extremities: Trace peripheral edema noted CEAP: C - 3 E - primary A - superficial P - reflux General: Yes normal to inspection, Yes full ROM, Yes capillary refill normal and Yes normal gait Assessment & Plan Assessment & Plan (1) Varicose veins of both lower extremities with inflammation: Code(s): I83.11 - Varicose veins of right lower extremity with inflammation; I83.12 - Varicose veins of left lower extremity with inflammation Category: Medical Plan: Leslie is presenting today on referral from her PCP for ongoing varicose veins, worsening over the last 4-5 years. In short, the patient has evidence of venous insufficiency. I have discussed the pathophysiology with the patient. In addition I have provided informational material regarding venous disease to the patient. We have discussed conservative measures including compression, elevation, and exercise. We are able to provide her with some compression stockings. I have taken the liberty of ordering venous insufficiency testing with the patient. They will follow up with me after testing. The patient had an opportunity to ask questions regarding the treatment plan. All questions were answered. Imaging studies, laboratory studies and physical exam results were discussed and reviewed in detail. No major barriers to understanding were identified. The patient expressed understanding and agreement with the above treatment plan. The patient is aware they should contact our office by phone for worsening of the current condition or the appearance of new symptoms. Thank you for allowing me to participate in the vascular care of this patient. If you have any questions or concerns regarding the treatment for the above condition please do not hesitate to contact me. The office telephone contact is [phone]. This note is constructed using voice recognition software. While every effort has been made to ensure accuracy, ui software engineer errors may have been included. Thank you for allowing me to participate in the care of your patient. Yours sincerely, CAMELIA Robles Orders: Orders US venous duplex LE BI 1 Week I83.11 - Varicose veins of right lower extremity with inflammation, I83.12 - Varicose veins of left lower extremity with inflammation Coding Level of Care Code New Pt Level 4 (79640) Diagnoses Varicose veins of both lower extremities with inflammation I83.11; I83.12
== END 2024-05-07 11:49 | disposition home or self-care (01) ==
PROVIDERS: PCP Nurse Practitioner Primary Care; Visit Provider Physician Assistant Surgical
DX: I83.11 Varicose veins of right lower extremity with inflammation (principal); I83.12 Varicose veins of left lower extremity with inflammation
CPT/HCPCS: 99204

== ENCOUNTER → 2024-05-07 11:27 | Outpatient (BNVA) | payer OTHER, SELFPAY | PROVIDERS: PCP Nurse Practitioner Primary Care; Visit Provider Physician Assistant Surgical ==

== ENCOUNTER → 2024-06-03 12:53 | Outpatient (BNV) | payer BC, SELFPAY | PROVIDERS: PCP Internal Medicine; Visit Provider Radiology Diagnostic Radiology | DX: I87.2 Venous insufficiency (chronic) (peripheral) (principal) | CPT/HCPCS: 93970 ==

== ENCOUNTER 2024-06-16 15:27 | Outpatient (AMB) | payer BC, SELFPAY ==
--- NOTE | 2024-06-16 15:28 | A.OFFVIS_ITS ---
Intake Visit Reasons: follow up [facility] 06/03/2024 Intake Note: Patient presents for [facility] 06/03/24. Accompanied by: Self / Same As Patient Allergies No Known Allergies Allergy (Verified 06/16/24 15:29) HPI HPI follow up [facility] 06/03/2024: Details: Leslie is presenting today as a follow up to venous insufficiency ultrasound, performed on 06/03/2024. She continues to endorse lower extremity pain and swelling, worse on the right. She has been using compression stockings, elevating her legs, as well as maintaining physical activity. He has no new concerns [facility] Medical History GERD (gastroesophageal reflux disease) Sliding hiatal hernia Schatzki's ring Diverticulosis Esophageal stricture Surgical History Hx of endoscopy Hx of colonoscopy No pertinent past surgical history Family History Mother Hypertension Father Skin cancer Colon cancer Social History Housing: House Alcohol intake: current Alcohol intake frequency: does not drink Comment: soc situations Patient Tobacco Use Status: Former Tobacco user Tobacco use type: Cigar e-Cigarette/Vaping Use: Never Used service: No Current occupational status: employed Cognitive needs: No Hearing needs: No Vision needs: Yes Female Reproductive History Menstrual Age of Menarche: 11 Review of Systems Const Reports as per HPI and Denies weakness ENT Reports Normal hearing present and Denies dizziness Card Reports as per HPI, Denies chest pain, Denies chest pain at rest, Denies chest pain with activity, Denies dyspnea and Denies dyspnea on exertion Resp Reports as per HPI, Denies cough, Denies dyspnea and Denies dyspnea on exertion GI Reports as per HPI, Denies abdominal pain, Denies nausea and Denies vomiting Musc Denies numbness Skin/Breast Reports as per HPI, Denies erythema and Denies wounds Neuro Reports Normal hearing present, Denies dizziness, Denies numbness, Denies Sensory deficit (Neuro) and Denies weakness Psych Reports no additional complaints Endo Reports no additional complaints Physical Exam Const General: healthy appearing and no acute distress Orientation/consciousness: patient oriented x3 HEENT Head: Yes normal to inspection Ears: hearing grossly normal bilaterally Mouth: Normal oral and palatal mucosa present Resp Effort & Inspection: normal respiratory effort and able to speak in complete sentences Auscultation: clear to auscultation bilaterally Cardio Jugular venous distension: no JVD Rate: regular rate Rhythm: regular rhythm Heart sounds: S1 normal heart sound present and S2 normal heart sound present Bruits: no abdominal aortic bruits, no carotid bruits, no femoral bruits and no renal bruits Peripheral pulses: Peripheral pulses 2+ throughout GI Inspection: Yes normal to inspection Palpation (GI): No Abdominal aortic bruit present Skin General skin exam: no rashes or lesions noted Wounds: no wounds Hair: normal Neuro General: patient oriented x3 Cranial nerves: Yes Normal hearing present Cognition (Neuro): normal cognition Gait exam (Neuro): Normal gait present Motor exam (neuro): 5/5 motor strength present throughout Sensory Exam: No Sensory deficit (Neuro) Extrem Other: Right lower extremity: several tortuosities noted on the medial aspect around [id number]. Rope-like varicosity, approximately 4-5 cm, noted from the distal thigh to the tibial tuberosity area. Spider veins noted on the upper lateral thigh. Left lower extremity: Spider veins noted multiple locations throughout the lower extremity. Bilateral lower extremities: Trace peripheral edema noted General: Yes normal to inspection, Yes full ROM, Yes capillary refill normal and Yes normal gait Results Reviewed Results Reviewed: Brief summary of venous insufficiency testing is as follows: right great saphenous vein: negative right small saphenous vein: negative right accessory vein: none present left great saphenous vein: negative left small saphenous vein: negative left accessory vein: none present Please note there is no evidence of any venous aneurysms or significant tortuosity Right lower extremity varicose veins noted from the distal thigh down the calf to the anterior tibia. Assessment & Plan Assessment & Plan (1) Varicose veins of both lower extremities with inflammation: Code(s): I83.11 - Varicose veins of right lower extremity with inflammation; I83.12 - Varicose veins of left lower extremity with inflammation Category: Medical Plan: Leslie is presenting today as a follow up to venous insufficiency ultrasound, performed on 06/03/2024. There was some small reflux noted in the left lower extremity; however, she has complaints mostly in the right lower extremity. There was several varicose veins noted from the distal thigh down to the anterior tibia on the right lower extremity, where the patient is having most of her pain and discomfort. This patient has varicose veins with inflammation. They continue to be a source of discomfort for the patient. The patient has tried conservative treatment with compression, leg elevation and exercise program for over 3 months time. They have been compliant with all treatment. This has provided minimal relief for the patient. I do not anticipate this course of treatment will alter the underlying etiology. The patient has been scheduled for lower extremity venous treatment inclusive of right lower extremity microphlebectomy. Risks, benefits, and complications of this procedure has been discussed in detail with the patient including but not limited to bleeding, infection, and the development of a DVT. The patient has demonstrated a clear understanding and has consented. We will schedule the patient as soon as possible. Thank you for allowing us to participate in this patient's care. If there are any questions or concerns please do not hesitate to contact us. This note is constructed using voice recognition software. While every effort has been made to ensure accuracy, call center associate errors may have been included. Thank you for allowing me to participate in the care of your patient. Yours sincerely, CAMELIA Robles Coding Level of Care Code Est Pt Level 4 (31820) Diagnoses Varicose veins of both lower extremities with inflammation I83.11; I83.12 Comment Review of venous insufficiency ultrasound
== END 2024-06-17 09:12 | disposition home or self-care (01) ==
PROVIDERS: PCP Internal Medicine; Visit Provider Physician Assistant Surgical
DX: I83.11 Varicose veins of right lower extremity with inflammation (principal); I83.12 Varicose veins of left lower extremity with inflammation
CPT/HCPCS: 99214

== ENCOUNTER 2024-07-31 12:18 | Outpatient (AMB) | payer BC, SELFPAY ==
--- NOTE | 2024-08-03 12:23 | A.OFFVIS_ITS ---
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 Accompanied by: Self / Same As Patient Allergies No Known Allergies Allergy (Verified 08/03/24 12:24) PFSH Medical History GERD (gastroesophageal reflux disease) Sliding hiatal hernia Schatzki's ring Diverticulosis Esophageal stricture Surgical History Hx of endoscopy Hx of colonoscopy No pertinent past surgical history Family History Mother Hypertension Father Skin cancer Colon cancer Social History Housing: House Alcohol intake: current Alcohol intake frequency: does not drink Comment: soc situations Patient Tobacco Use Status: Former Tobacco user Tobacco use type: Cigar e-Cigarette/Vaping Use: Never Used service: No Current occupational status: employed Cognitive needs: No Hearing needs: No Vision needs: Yes Female Reproductive History Menstrual Age of Menarche: 11 Physical Exam Vital Signs: BMI result Body Mass Index 29.5 Office Procedures Vascular Office Procedure Details Details: Diagnosis: Right Leg varicose veins with inflammation Procedure: Right leg Microphlebectomy Anesthesia: Local Infiltration 20 cc, Tumescent: 0 cc. Varicose veins were marked in the standing position on the right leg and the patient was then placed in the supine position. The right lower extremity was prepared and draped to allow knee flexion in the sterile field. The patient had large superficial varicose veins with significant symptoms of pain. It was therefore determined to perform microphlebectomies of the clusters of varicose veins. The patient had bulging varicose veins which were previously marked in the standing position. A small stab incision was made longitudinally directly overlying the varicose vein in the calf and the varicose vein was grasped with a hemostat aided by a vein hook. It was then dissected as far proximally and distally as possible and avulsed. A total of 21 stab incisions were made and the procedure of stab phlebectomies was repeated 21 times. Hemostasis was checked and stab incision sites were closed with steri-strips and sterile dressing was given with gauze and krilex wrap followed by an lakia bandage. There were no complications and blood loss was minimal. Post-Op instructions were given and a follow-up appointment was recommended. 94835 - Stab Phlebectomy >20 All charges added?: Procedure code (CPT) selection complete Assessment & Plan Assessment & Plan (1) Varicose veins of right lower extremity with inflammation: Comment: 07/31/2024 - right leg microphlebectomy Code(s): I83.11 - Varicose veins of right lower extremity with inflammation Category: Medical Plan: See op note Coding Level of Care Code Procedure Only Diagnoses Varicose veins of right lower extremity with inflammation I83.11 CPT Codes Details - Vascular 6: 09595 - Stab Phlebectomy >20 ([id number])
[2024-08-03 12:24] VITALS: BMI 29.5
== END 2024-07-31 13:33 | disposition home or self-care (01) ==
LOC: HO.HVS 12:19
PROVIDERS: PCP Internal Medicine; Visit Provider Surgery Vascular Surgery
DX: I83.11 Varicose veins of right lower extremity with inflammation (principal)
CPT/HCPCS: 37766

== ENCOUNTER → 2024-07-31 12:18 | Outpatient (BNVA) | payer BC, SELFPAY | PROVIDERS: PCP Internal Medicine; Visit Provider Surgery Vascular Surgery | DX: I83.11 Varicose veins of right lower extremity with inflammation (principal) | CPT/HCPCS: 37766; J2003 ==

== ENCOUNTER → 2024-08-18 15:44 | Outpatient (BNVA) | payer BC, SELFPAY | PROVIDERS: PCP Internal Medicine; Visit Provider Surgery Vascular Surgery ==

== ENCOUNTER → 2024-08-18 15:44 | Outpatient (AMB) | payer BC, SELFPAY ==
--- NOTE | 2024-08-18 15:48 | A.OFFVIS_ITS ---
Intake Visit Reasons: 2 wk follow up Right [facility] 07/24/24 Intake Note: Patient presents for follow up micro. Patient states she has had a burning and numbing sensation behind her knee since the procedure. Accompanied by: Self / Same As Patient Allergies No Known Allergies Allergy (Verified 08/18/24 15:49) HPI HPI 2 wk follow up [facility] 07/24/24: Details: The patient is a 54-year-old female presenting for evaluation following a right leg microphlebectomy. She describes significant improvement in symptoms, with a persistent issue of tenderness, numbness, and occasional burning sensation at a specific spot with a large scab on the back of her leg. Bruising has been noted but is improving. Prior ultrasound in May revealed no significant venous issues. The patient remains aware of possible future venous complications and advised that certain symptoms such as vein bulging or leg fatigue might necessitate future medical attention. Overall, symptoms have improved post- procedure, and is doing significantly better. Now for postprocedure follow-up. [facility] Medical History GERD (gastroesophageal reflux disease) Sliding hiatal hernia Schatzki's ring Diverticulosis Esophageal stricture Surgical History Hx of endoscopy Hx of colonoscopy No pertinent past surgical history Family History Mother Hypertension Father Skin cancer Colon cancer Social History Housing: House Alcohol intake: current Alcohol intake frequency: does not drink Comment: soc situations Patient Tobacco Use Status: Former Tobacco user Tobacco use type: Cigar e-Cigarette/Vaping Use: Never Used service: No Current occupational status: employed Cognitive needs: No Hearing needs: No Vision needs: Yes Female Reproductive History Menstrual Age of Menarche: 11 Review of Systems Const All systems reviewed & are unremarkable except as noted in HPI and below Reports no additional complaints ENT Reports Normal hearing present Card Denies chest pain, Denies chest pain at rest, Denies chest pain with activity and Denies pedal edema Resp Denies cough GI Denies abdominal pain Musc Denies abnormal gait, Denies muscle cramps and Denies radiating pain into limb Skin/Breast Denies skin ulcer and Denies wounds Neuro Reports Normal hearing present and Denies abnormal gait Psych Reports no additional complaints Physical Exam Const General: cooperative, healthy appearing and comfortable Orientation/consciousness: oriented to person, oriented to place and oriented to time HEENT Head: Yes normal to inspection Neck Neck: Yes normal visual inspection Carotids: no bruits Chest Chest palpation & inspection: normal inspection of the chest Resp Effort & Inspection: normal respiratory effort and able to speak in complete sentences Auscultation: clear to auscultation bilaterally, no crackles, no rales, no rhonchi and no wheezes Cardio Rate: regular rate Rhythm: regular rhythm Heart sounds: S1 normal heart sound present and S2 normal heart sound present Bruits: no carotid bruits Peripheral pulses: Peripheral pulses 2+ throughout GI Inspection: Yes normal to inspection Skin Other: Right leg incisions all healed Wounds: no wounds Hair: normal Neuro General: oriented to person, oriented to place and oriented to time Cranial nerves: Yes CN's II-XII intact bilaterally and Yes Normal hearing present Cognition (Neuro): normal cognition Motor exam (neuro): 5/5 motor strength present throughout Extrem Other: venous exam: No significant superficial varicosities or spider telangiectasias, minimal edema General: No clubbing, No cyanosis and No edema Psych Appearance: grossly normal Mental Status: mental status grossly normal Speech and movement: Normal speech and movement present Assessment & Plan Assessment & Plan (1) Varicose veins of right lower extremity with inflammation: Comment: 07/31/2024 - right leg microphlebectomy Code(s): I83.11 - Varicose veins of right lower extremity with inflammation Category: Medical Plan: The patient has done extremely well with all venous treatments. Patient's may often experience postprocedure phlebitic episodes and I have discussed with the patient use of warm compresses and NSAIDS if tolerated for pain discomfort. In addition, I have discussed continued conservative measures including use of compression, leg elevation, and exercise. The patient was also given an information sheet regarding appropriate use of compression stockings and future purchases. Thank you for allowing us to care for your patient with venous disease. Plan Patient was informed and verbally consented to the use of an ambient scribe for clinic note documentation during this visit. Patient Instructions: - Expect the scab and symptoms such as tenderness and numbness to heal over time. - Monitor for changes in vein appearance or new symptoms like tired or heavy legs. - Return for consultation if new symptoms develop, indicating possible venous issues. - No immediate follow-up is necessary unless new concerns arise. Coding Level of Care Code Est Pt Level 4 (62775) Diagnoses Varicose veins of right lower extremity with inflammation I83.11
== END ==
LOC: HO.HVS 15:45
PROVIDERS: PCP Internal Medicine; Visit Provider Surgery Vascular Surgery
DX: I83.11 Varicose veins of right lower extremity with inflammation (principal)
CPT/HCPCS: 99214